=== PATIENT | female | born 1985 | race Caucasian/White ===

== ENCOUNTER → 2017-10-24 | Outpatient (CLI) | payer BC ==
[2017-10-24 18:22] LABS: BASO % 0.4 % (0.0-1.0); EOS # 0.1 10^3/uL (0.0-0.50); EOS % 0.8 % (0.0-3.0); HEMATOCRIT 34.7 % (36.0-47.0); HEMOGLOBIN 11.7 g/dl (12.0-15.5); IMMATURE GRANULOCYTE % 0.5 % (0-3.0); LYMPH # 2.3 10^3/uL (1.5-4.5); LYMPH % 27.3 % (24.0-44.0); MEAN CORPUSCULAR HEMOGLOBIN 29.8 pg (27.0-33.0); MEAN CORPUSCULAR HGB CONC 33.7 g/dl (32.0-36.5); MEAN CORPUSCULAR VOLUME 88.3 fl (80.0-96.0); MONO # 0.5 10^3/uL (0.0-0.8); MONO % 5.5 % (0.0-5.0); NEUTROPHILS # 5.6 10^3/uL (1.8-7.7); NEUTROPHILS % 65.5 % (36.0-66.0); PLATELET COUNT, AUTOMATED 209 10^3/uL (150-450); RED BLOOD COUNT 3.93 10^6/uL (4.00-5.40); RED CELL DISTRIBUTION WIDTH 13.4 % (11.5-14.5); WHITE BLOOD COUNT 8.6 10^3/uL (4.0-10.0)
[2017-10-25 10:39] LABS: RUBELLA IgG QUALITATIVE IMMUNE (IMMUNE)
[2017-10-25 11:02] LABS: HBsAg Prenatal NEGATIVE (NEGATIVE)
[2017-10-25 11:09] LABS: HIV 1&2 SCREEN CENTAUR NEGATIVE (NEGATIVE)
== END ==
LOC: M SMT 13:38
DX: Z34.81 Encounter for supervision of other normal pregnancy, first trimester (principal); Z3A.09 9 weeks gestation of pregnancy
CPT/HCPCS: 86762

== ENCOUNTER → 2017-10-25 | Outpatient (CLI) | payer BC | LOC: M RAD 16:13 | DX: Z36.9 Encounter for antenatal screening, unspecified (principal); Z3A.19 19 weeks gestation of pregnancy | CPT/HCPCS: 76811 ==

== ENCOUNTER → 2017-11-22 | Outpatient (CLI) | payer BC | LOC: M SMT 11:10 | DX: Z34.82 Encounter for supervision of other normal pregnancy, second trimester (principal); Z3A.23 23 weeks gestation of pregnancy | CPT/HCPCS: 76816 ==

== ENCOUNTER → 2017-12-16 | Outpatient (REF) | payer BC ==
[2017-12-16 21:44] LABS: CHLAMYDIA DNA AMPLIFICATION NEGATIVE (NEGATIVE); GC DNA AMPLIFICATION NEGATIVE (NEGATIVE)
== END ==
LOC: M LAB REF 17:08
DX: Z34.82 Encounter for supervision of other normal pregnancy, second trimester (principal)
CPT/HCPCS: 87186

== ENCOUNTER → 2018-01-27 | Outpatient (CLI) | payer BC ==
[2018-01-27 15:20] LABS: HEMATOCRIT 30.9 % (36.0-47.0); HEMOGLOBIN 10.6 g/dl (12.0-15.5); MEAN CORPUSCULAR HEMOGLOBIN 29.3 pg (27.0-33.0); MEAN CORPUSCULAR HGB CONC 34.3 g/dl (32.0-36.5); MEAN CORPUSCULAR VOLUME 85.4 fl (80.0-96.0); PLATELET COUNT, AUTOMATED 216 10^3/uL (150-450); RED BLOOD COUNT 3.62 10^6/uL (4.00-5.40); RED CELL DISTRIBUTION WIDTH 13.7 % (11.5-14.5)
[2018-01-27 15:43] LABS: GLUCOSE CHALLENGE TEST 1 HOUR 95 MG/DL (LESS THAN 140)
== END ==
LOC: M LAB 13:46
DX: Z34.83 Encounter for supervision of other normal pregnancy, third trimester (principal); Z3A.00 Weeks of gestation of pregnancy not specified
CPT/HCPCS: 82950

== ENCOUNTER → 2018-01-28 | Outpatient (REF) | payer BC | LOC: M LAB REF 16:43 | DX: Z34.83 Encounter for supervision of other normal pregnancy, third trimester (principal) | CPT/HCPCS: 87086 ==

== ENCOUNTER → 2018-02-14 | Outpatient (REF) | payer BC | LOC: M LAB REF 02-17 13:28 | DX: Z34.83 Encounter for supervision of other normal pregnancy, third trimester (principal); Z3A.00 Weeks of gestation of pregnancy not specified | CPT/HCPCS: 87088 ==

== ENCOUNTER → 2018-02-28 | Outpatient (REF) | payer BC | LOC: M LAB REF 17:03 | DX: Z34.83 Encounter for supervision of other normal pregnancy, third trimester (principal); Z3A.00 Weeks of gestation of pregnancy not specified ==

== ENCOUNTER 2018-03-09 22:36 | Inpatient (IN) | payer BC ==
[2018-03-09] MEDS: PENICILLIN G POTASSIUM IV 5 MU in D5W MINI-BAG PLUS 100 ML IV (23:11)
[2018-03-09] MEDS: LR 1,000 ML IV (23:11)
[2018-03-09] MEDS: LACTATED RINGER'S 1000 ML IV (23:11)
[2018-03-09 23:13] LABS: HEMATOCRIT 33.4 % (36.0-47.0); HEMOGLOBIN 11.3 g/dl (12.0-15.5); MEAN CORPUSCULAR HEMOGLOBIN 29.4 pg (27.0-33.0); MEAN CORPUSCULAR HGB CONC 33.8 g/dl (32.0-36.5); MEAN CORPUSCULAR VOLUME 86.8 fl (80.0-96.0); PLATELET COUNT, AUTOMATED 205 10^3/uL (150-450); RED BLOOD COUNT 3.85 10^6/uL (4.00-5.40); RED CELL DISTRIBUTION WIDTH 14.7 % (11.5-14.5); WHITE BLOOD COUNT 11.9 10^3/uL (4.0-10.0)
[2018-03-10] MEDS ORDERED: FENTANYL 2MCG/ML ROPIVACAINE 0.2% IN 0.9% NACL 200ML IVBAG As Ordered (00:03)
[2018-03-10] MEDS ORDERED: ONDANSETRON 4MG/2ML VIAL (J2405) IV ×2 (00:33→05:45)
[2018-03-10] MEDS ORDERED: ePHEDrine SULFATE 25 MG/5 ML(5MG/ML) SYRINGE IV (00:33)
[2018-03-10] MEDS ORDERED: diphenhydrAMINE INJ 50MG/ML VIAL (J1200) IV (00:33)
[2018-03-10] MEDS ORDERED: EPIDURAL/PCA KEYS XX (00:33)
[2018-03-10] MEDS ORDERED: REFRIGERATOR IV KEYS XX (00:33)
[2018-03-10] MEDS ORDERED: NALOXONE INJ 0.4 MG/1 ML VIAL (J2310) IV (00:33)
[2018-03-10] MEDS ORDERED: FENTANYL/ROPIVACAINE/NACL BAG 200 ML EPIDURAL (00:33)
[2018-03-10] MEDS ORDERED: LACTATED RINGER'S 1000 ML IV (00:33)
[2018-03-10] MEDS ORDERED: EPIDURAL COMMENT XX (00:33)
[2018-03-10] MEDS: OXYTOCIN DRIP 30 UNITS in APPROPRIATE DILUENT 1 EA IV ×2 (03:37→05:45)
[2018-03-10] MEDS: PENICILLIN G POTASSIUM IV 2.5 MU in APPROPRIATE DILUENT 1 EA IV (03:45)
[2018-03-10] MEDS ORDERED: DOCUSATE SODIUM 100 MG CAP PO (05:45)
[2018-03-10] MEDS ORDERED: RHOGAM 300 MCG (1500 IU) INJ (J2790) IM (05:45)
[2018-03-10] MEDS ORDERED: DIBUCAINE 1% OINTMENT 30GM TOP (05:45)
[2018-03-10] MEDS ORDERED: MEASLES,MUMPS,RUBELLA VACCINE INJ (MMR-II) (90707) SC (05:45)
[2018-03-10] MEDS ORDERED: METHYLERGONOVINE MALEATE 0.2 MG TAB PO (05:45)
[2018-03-10] MEDS: AMPHETAMINE/DEXTROAMPHETAMINE 5 MG *ER* CAPSULE (ADDERALL XR) PO ×2 (09:00→15:05)
[2018-03-10] MEDS ORDERED: ADDERALL 5 MG TAB PO (09:00)
[2018-03-10] MEDS: IBUPROFEN 800 MG TAB PO (09:47)
[2018-03-10] MEDS: PRENATAL VITAMINS CHEWABLE TABLET PO (09:47)
[2018-03-10] MEDS: ACETAMINOPHEN 500 MG TAB PO (11:57)
[2018-03-11] MEDS: IBUPROFEN 800 MG TAB PO (03:21)
[2018-03-11] MEDS: AMPHETAMINE/DEXTROAMPHETAMINE 5 MG *ER* CAPSULE (ADDERALL XR) PO (09:51)
[2018-03-11] MEDS: PRENATAL VITAMINS CHEWABLE TABLET PO (09:51)
== END 2018-03-11 13:20 | disposition home or self-care (01) | DRG 560 ==
LOC: M LDO 22:36 → M OBS 03-10 07:27 → M LDI 22:46
PROVIDERS: Specialist
PROC: 10E0XZZ Delivery of Products of Conception, External Approach (ICD-10-PCS; principal; 2018-03-10)
DX: O99.334 Smoking (tobacco) complicating childbirth (principal); F17.210 Nicotine dependence, cigarettes, uncomplicated; Z37.0 Single live birth; Z3A.38 38 weeks gestation of pregnancy; Z91.040 Latex allergy status; O99.820 Streptococcus B carrier state complicating pregnancy

== ENCOUNTER 2018-08-25 15:40 | Emergency (ER) | payer BC, OTHER ==
[~2018-08-25 15:40] MED LIST: ADDE30CA3 PO; COLA100C5 PO; FE T325T PO; IBUP-1114 PO; MAPA500T2 PO; MOTR200T44 PO; PRENTAB16 PO; TUMS500C PO; TYLE325T5 PO
[2018-08-25] MEDS ORDERED: KETOROLAC 30 MG/ML VIAL (J1885) As Ordered ONE (15:59)
[2018-08-25] MEDS ORDERED: KETOROLAC 30 MG/ML VIAL (J1885) IV ONE (16:00)
[2018-08-25] MEDS ORDERED: NS 1,000 ML IV ONE (16:15)
[2018-08-25 16:30] LABS: BASO % 0.5 % (0.0-1.0); EOS # 0.1 10^3/uL (0.0-0.50); EOS % 0.8 % (0.0-3.0); HEMATOCRIT 43.5 % (36.0-47.0); HEMOGLOBIN 14.7 g/dl (12.0-15.5); LYMPH # 2.8 10^3/uL (1.5-4.5); LYMPH % 32.7 % (24.0-44.0); MEAN CORPUSCULAR HGB CONC 33.8 g/dl (32.0-36.5); MEAN CORPUSCULAR VOLUME 85.8 fl (80.0-96.0); MONO # 0.5 10^3/uL (0.0-0.8); MONO % 5.8 % (0.0-5.0); NEUTROPHILS # 5.1 10^3/uL (1.8-7.7); PLATELET COUNT, AUTOMATED 299 10^3/uL (150-450); RED BLOOD COUNT 5.07 10^6/uL (4.00-5.40); WHITE BLOOD COUNT 8.6 10^3/uL (4.0-10.0)
[2018-08-25 16:57] LABS: ALBUMIN 4.1 GM/DL (3.2-5.2); ALT/SGPT 29 U/L (12-78); BILIRUBIN,DIRECT 0.1 MG/DL (0.0-0.2); BILIRUBIN,TOTAL 0.5 MG/DL (0.2-1.0); BLOOD UREA NITROGEN 7 MG/DL (7-18); CALCIUM LEVEL 9.6 MG/DL (8.5-10.1); CARBON DIOXIDE LEVEL 22 MEQ/L (21-32); CHLORIDE LEVEL 107 MEQ/L (98-107); CREATININE FOR GFR 1.02 MG/DL (0.55-1.30); GLOMERULAR FILTRATION RATE > 60.0 (>60); GLUCOSE, FASTING 109 MG/DL (70-100); POTASSIUM SERUM 3.8 MEQ/L (3.5-5.1); SODIUM LEVEL 141 MEQ/L (136-145); TOTAL PROTEIN 7.9 GM/DL (6.4-8.2)
--- NOTE | 2018-08-25 18:05 | REP ---
Clinical: Left flank pain. Technique: Axial noncontrast images from the lung bases to the pubic symphysis with coronal and sagittal re-formations. Findings: Mild acute left-sided obstructive uropathy with edematous enlargement to the left kidney, perinephric and periureteral stranding along with hydronephrosis secondary to a 2 mm calculus at the ureterovesical junction (image 129). No other urinary tract calcifications are identified bilaterally. The right kidney/ureter and bladder appear normal. Liver, spleen, pancreas, gallbladder, and bilateral adrenal glands are normal. The enteric system is without obstruction or acute inflammatory process. Normal terminal ileum and appendix are identified in the right lower quadrant. Pelvis demonstrates normal bladder and age-appropriate uterus/adnexa. No ascites. No free air. No adenopathy. Abdominal aorta without aneurysm. Musculoskeletal structures are intact. Lung bases are clear. Impression: Acute left-sided obstructive uropathy with a 2 mm obstructing calculus at the left ureterovesical junction. Electronically Signed by Emanuel Kenny MD 08/25/2018 05:56 P
[2018-08-25] MEDS ORDERED: PERCOCET 5MG/325MG TAB As Ordered ONE (18:14)
[2018-08-25] MEDS ORDERED: PERCOCET 5MG/325MG TAB PO ONE (18:15)
[2018-08-25] MEDS ORDERED: LORazepam 2 MG/ML VIAL (J2060) IV STA (18:20)
[2018-08-25] MEDS ORDERED: FLOM0.4C39 PO (18:28)
[2018-08-25] MEDS ORDERED: NORCOTAB PO (18:28)
[2018-08-25 18:36] VITALS: BP 154/101
== END 2018-08-25 18:42 | disposition home or self-care (01) ==
LOC: M ED 15:40
DX: N20.1 Calculus of ureter (principal); Z72.0 Tobacco use; Z79.899 Other long term (current) drug therapy; Z91.040 Latex allergy status
CPT/HCPCS: 74176; 80048; 80076; 81001; 81025; 85025; 96374; 96375; 99284; J1885; J2060

== ENCOUNTER → 2020-08-09 | Outpatient (CLI) | payer SELFPAY ==
[~2020-08-09] MED LIST changes: +FLOM0.4C39 PO; +HYDR-3715 PO
== END ==
LOC: M LABSMTC 11:44
PROVIDERS: ATTEND Pediatrics
DX: Z20.828 Contact with and (suspected) exposure to other viral communicable diseases (principal)

== ENCOUNTER 2020-08-31 16:59 | Emergency (ER) | payer OTHER, SELFPAY ==
[~2020-08-31] VITALS: Ht 167.6 cm; Wt 89.6 kg
--- OUTSIDE RECORDS SUMMARY | 2020-08-31 17:14 | CCD ---
Author Organization Unknown Address [address] [place] [address] Phone [phone] Care Team Providers Care Hostel Parent Name Role Phone [phone] Covid Nurse Unavailable Unavailable Allergies None recorded. Medications None recorded. Problems None recorded. Procedures None recorded. Results Lab Results Date Name Specimen Result Interpretation Description Value Range Status Address 08/10/2020 SARS CoV 2 RdRp Gene, QL Probe, Respirat ory Specimen Nose (nasal passage) Normal Sars-cov-2 negative negative Final [facility]: [address] [facility] Past Encounters 08/10/2020 Exposure to SARS-CoV-2 Gonzalo Grajeda MD: [address] [place] [id number], Ph. Social History None recorded. Vaccine List None recorded. Plan of Care Reminders Provider Appointments None recorded. Lab None recorded. Referral None recorded. Procedures None recorded. Surgeries None recorded. Imaging None recorded. Vitals None recorded.
--- OUTSIDE RECORDS SUMMARY | 2020-08-31 17:14 | CCD | Continuity of Care Document ---
Author Author [facility] Organization [facility] Address Unknown Phone Unavailable Care Team Providers Care Senior Art Director Name Role Phone Elissa Tobar MD Unavailable Unavailable Allergies, Adverse Reactions, Alerts Substance Reaction Status Criticality No Known Allergies Active No Information Medications Medication Instructions Dosage Effective Dates (start - stop) Sta tus Comments ADDERALL (unknown strength) take 1 tablet by oral rout e every day before breakfast Not Available - Active Problems Condition Effective Dates (start - stop) Clinical Status C omments Body mass index (BMI) 31.0-31.9, adult - Overweight - Human immunodeficiency virus [HIV] counseling Encounter for test, result negative Other sex counseling Encounter for oth general cnsl and advice on contraception 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 Encounter for oth screening for malignant neoplasm of breast HIV Counseling [employer] Exam, Routine WWE Family Planning Counseling Procedures Procedure Date No Information Results Test Name Date and Time Measure Units Reference Range Abnormal Flag St atus Comments No Information Advance Directives Directive Yes / No Effective Date File Name No Information Encounters Encounter Description Practice Location Reason(s) For Visit Diagnose s Date Provider Providers Copied on [facility]counter [facility] [place], [address] [place] [address], [id number], tel:[phone] SHERICE Méndez No Information Amadou Bowers. [address] [place] [address], [id number], . tel:[phone] [facility] [address] [place] [address], [id number], tel:[phone] [facility] Human immunodeficie ncy virus [HIV] counselingEncounter for test, result negativeOther sex counselingEncounter for oth general cnsl and advice on contraception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Encounter for oth screening for malignant neoplasm of breastBody mass index (BMI) 31.0-31.9, adult Kathy Guillory. [address] [place] [address], [id number], [place]. tel:[phone] Referring Provider: Pastora Chavez, [address] [place], [place], [id number]. tel:[phone] [facility] [address], [id number], tel:[phone] [facility] HIV CounselingGYN E xam, Routine WWEFamily Planning CounselingOverweight Ramiro Peggy. [address] [place], [place], [id number], [place]. tel:[phone] Family History Family Member Diagnosis Age At Onset Maternal grandmother Myocardial Infarction Maternal grandmother Diabetes mellitus 1st degree relative No hx of cancer of breast, colon, endome trium or ovary 1st degree relative No hx of coronary heart disease (female <65, male <55) 1st degree relative No hx of venous thromboembolism Immunizations Vaccine Date Status Comments varicella virus vaccine administered Note: da te unknown ; Source: Source Unspecified tetanus toxoid, adsorbed administered Note: d ate unknown ; Source: Source Unspecified measles, mumps and rubella virus vaccine adminis tered Note: date unknown ; Source: Source Unspecified hepatitis B vaccine, adult dosage administered Note: date unknown ; Source: Source Unspecified hepatitis A vaccine, adult dosage administered Note: date unknown ; Source: Source Unspecified Payers Payer name Insurance type Covered libertarian ID Authorization(s ) [facility] [id number] Social History Type Description Quantity Date Captured Comments Alcohol Use Details Unknown Caffeine Use Details Unknown Tobacco Use Status Smoking Status Heavy tobacco smoker Sex Female Vital Signs Date / Time: Height Weight BMI Pulse Rate Blood Pressure Temperatu re Respiratory Rate Body Surface Area Head Circumference BMI percentile Pulse Ox In haled Ox No Information Chief Complaint And Reason For Visit No Information Reason For Referral Reason For Referral No Information Plan Of Treatment Date Type Action Status Goal Dietary management education, gu idance, and counseling completed Goal Tobacco cessation counseling com pleted Goal Dietary management education, gu idance, and counseling completed History Of Present Illness Encounter Date Complaint History Of Present I llness No Information Functional Status Date Functional Assessment No Information Medications Administered Medication Instructions Dosage Effective Dates (start - stop) Sta tus Comments No Information Instructions Date Instruction Additional Informati on Dietary management education, guidance, and counseling Related to Body mass index (BMI) 31.0-31.9, adult Dietary management education, guidance, and counseling Related to Overweight Assessments Type Assessment Date No Information Goals Health Concern Goal Type Priority Status Date No Information Medical Equipment Description Device Harris Device Identifier Effective Win es (start - stop) Status No Information Mental Status Date Cognitive Assessment No Information Health Concerns Observation Date No Information Concern Status Date No Information Physical Examination Exam Findings Details No Information
--- OUTSIDE RECORDS SUMMARY | 2020-08-31 17:15 | CCD ---
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 Name Role Phone Reyna Tobar MD Unavailable Unavailable Amadou, Reyna Bowers MD Unavailable Unavailable Amadou, Reyna Bowers MD Unavailable Unavailable Amadou, Reyna Bowers MD Unavailable Unavailable Amadou, Reyna Bowres MD Unavailable Unavailable Amadou, Reyna Bowers MD Unavailable Unavailable Amadou, Reyna Bowers MD Unavailable Unavailable Amadou, Reyna Bowers MD Unavailable Unavailable Amadou, Reyna Bowers MD Unavailable Unavailable Amadou, Reyna Bowers MD Unavailable Unavailable Amadou, Reyna Bowers MD Unavailable Unavailable Amadou, Reyna Bowers MD Unavailable Unavailable Amadou, Reyna Bowers MD Unavailable Unavailable Amadou, Reyna Bowers MD Unavailable Unavailable Amadou, Reyna Bowers MD Unavailable Unavailable Amadou, Reyna Bowers MD Unavailable Unavailable Amadou, Reyna Bowers MD Unavailable Unavailable Amadou, Reyna Bowers MD Unavailable Unavailable Amadou, Reyna Bowers MD Unavailable Unavailable Amadou, Reyna Bowers MD Unavailable Unavailable Amadou, Reyna Bowers MD Unavailable Unavailable Amadou, Reyna Bowers MD Unavailable Unavailable Amadou, Reyna Bowers MD Unavailable Unavailable Amadou, Reyna Bowers MD Unavailable Unavailable Amadou, Reyna Bowers MD Unavailable Unavailable Amadou, Reyna Bowers MD Unavailable Unavailable Amadou, Reyna Bowers MD Unavailable Unavailable Amadou, Reyna Bowers MD Unavailable Unavailable Amadou, Reyna Bowers MD Unavailable Unavailable Amadou, Reyna Bowers MD Unavailable Unavailable Amadou, Reyna Bowers MD Unavailable Unavailable Amadou, Reyna Bowers MD Unavailable Unavailable Amadou, Reyna Bowers MD Unavailable Unavailable Amadou, Reyna Bowers MD Unavailable Unavailable Amadou, Reyna Bowers MD Unavailable Unavailable Amadou, Reyna Bowers MD Unavailable Unavailable Amadou, Reyna Bowers MD Unavailable Unavailable Amadou, Reyna Bowers MD Unavailable Unavailable Amadou, Reyna Bowers MD Unavailable Unavailable Amadou, Reyna Bowers MD Unavailable Unavailable Amaduo, Reyna Bowers MD Unavailable Unavailable Amadou, Reyna Bowers MD Unavailable Unavailable Amadou, Reyna Bowers MD Unavailable Unavailable Amadou, Reyna Bowers MD Unavailable Unavailable Amadou, Reyna Bowers MD Unavailable Unavailable Amadou, Reyna Bowers MD Unavailable Unavailable Amadou, Reyna Bowers MD Unavailable Unavailable Amadou, Reyna Bowers MD Unavailable Unavailable Amadou, Reyna Bowers MD Unavailable Unavailable Amadou, Reyna Bowers MD Unavailable Unavailable Amadou, Reyna Bowers MD Unavailable Unavailable Amadou, Reyna Bowers MD Unavailable Unavailable Amadou, Reyna Bowers MD Unavailable Unavailable Amadou, Reyna Bowers MD Unavailable Unavailable Amadou, Reyna Bowers MD Unavailable Unavailable Amadou, Reyna Bowers MD Unavailable Unavailable Amadou, Reyna Bowers MD Unavailable Unavailable Amadou, Reyna Bowers MD Unavailable Unavailable Amadou, Reyna Bowers MD Unavailable Unavailable Amadou, Reyna Bowers MD Unavailable Unavailable Amadou, Reyna Bowers MD Unavailable Unavailable Amadou, Reyna Bowers MD Unavailable Unavailable Amadou, Reyna Boewrs MD Unavailable Unavailable Amadou, Reyna Bowers MD Unavailable Unavailable Amadou, Reyna Bowers MD Unavailable Unavailable Amadou, Reyna Bowers MD Unavailable Unavailable Amadou, Reyna Bowers MD Unavailable Unavailable Amadou, Reyna Bowers MD Unavailable Unavailable Amadou, Reyna Bowers MD Unavailable Unavailable Amadou, Reyna Bowers MD Unavailable Unavailable Amadou, Reyna Bowers MD Unavailable Unavailable Amadou, Reyna Bowers MD Unavailable Unavailable Amadou, Reyna Bowers MD Unavailable Unavailable Amadou, Reyna Bowers MD Unavailable Unavailable Amadou, Reyna Bowers MD Unavailable Unavailable Werner Grajeda MD Unavailable Unavailable Werner Grajeda MD Unavailable Unavailable Werner Grajeda MD Unavailable Unavailable Werner Grajeda MD Unavailable Unavailable Werner Grajeda MD Unavailable Unavailable Werner Grajeda MD Unavailable Unavailable Werner Grajeda MD Unavailable Unavailable Werner Grajeda MD Unavailable Unavailable Werner Grajeda MD Unavailable Unavailable Werner Grajeda MD Unavailable Unavailable Werner Grajeda MD Unavailable Unavailable Werner Grajeda MD Unavailable Unavailable Werner Grajeda MD Unavailable Unavailable Werner Grajeda MD Unavailable Unavailable Werner Grajeda MD Unavailable Unavailable Werner Grajeda MD Unavailable Unavailable Werner Grajeda MD Unavailable Unavailable Werner Grajeda MD Unavailable Unavailable Werner Grajeda MD Unavailable Unavailable Werner Grajeda MD Unavailable Unavailable Werner Grajeda MD Unavailable Unavailable Werner Grajeda MD Unavailable Unavailable Werner Grajeda MD Unavailable Unavailable Werner Grajeda MD Unavailable Unavailable Werner Grajeda MD Unavailable Unavailable Werner Grajeda MD Unavailable Unavailable Werner Grajeda MD Unavailable Unavailable Werner Grajeda MD Unavailable Unavailable Werner Grajeda MD Unavailable Unavailable Werner Grajeda MD Unavailable Unavailable Werner Grajeda MD Unavailable Unavailable Werner Grajeda MD Unavailable Unavailable Werner Grajeda MD Unavailable Unavailable Werner Grajeda MD Unavailable Unavailable Werner Grajeda MD Unavailable Unavailable Werner Grajeda MD Unavailable Unavailable Werner Grajeda MD Unavailable Unavailable Werner Grajeda MD Unavailable Unavailable Werner Grajeda MD Unavailable Unavailable Werner Grajeda MD Unavailable Unavailable Werner Grajeda MD Unavailable Unavailable Werner Grajeda MD Unavailable Unavailable Werner Grajeda MD Unavailable Unavailable Werner Grajeda MD Unavailable Unavailable Werner Grajeda MD Unavailable Unavailable Werner Grajeda MD Unavailable Unavailable Werner Grajeda MD Unavailable Unavailable Werner Grajeda MD Unavailable Unavailable Werner Grajeda MD Unavailable Unavailable Werner Grajeda MD Unavailable Unavailable Werner Grajeda MD Unavailable Unavailable Werner Grajeda MD Unavailable Unavailable Werner Grajeda MD Unavailable Unavailable Werner Grajeda MD Unavailable Unavailable Werner Grajeda MD Unavailable Unavailable Werner Grajeda MD Unavailable Unavailable Werner Grajeda MD Unavailable Unavailable Werner Grajeda MD Unavailable Unavailable Werner Grajeda MD Unavailable Unavailable Werner Grajeda MD Unavailable Unavailable Werner Grajeda MD Unavailable Unavailable Werner Grajeda MD Unavailable Unavailable Werner Grajeda MD Unavailable Unavailable Werner Grajeda MD Unavailable Unavailable Werner Grajeda MD Unavailable Unavailable Werner Grajeda MD Unavailable Unavailable Werner Grajeda MD Unavailable Unavailable Werner Grajeda MD Unavailable Unavailable Werner Grajeda MD Unavailable Unavailable Werner Grajeda MD Unavailable Unavailable Werner Grajeda MD Unavailable Unavailable Werner Grajeda MD Unavailable Unavailable Werner Grajeda MD Unavailable Unavailable Werner Grajeda MD Unavailable Unavailable Werner Grajeda MD Unavailable Unavailable Werner Grajeda MD Unavailable Unavailable Werner Grajeda MD Unavailable Unavailable Werner Grajeda MD Unavailable Unavailable Werner Grajeda MD Unavailable Unavailable Werner Grajeda MD Unavailable Unavailable Werner Grajeda MD Unavailable Unavailable Werner Grajeda MD Unavailable Unavailable Werner Grajeda MD Unavailable Unavailable Werner Grajeda MD Unavailable Unavailable Werner Grajeda MD Unavailable Unavailable Werner Grajeda MD Unavailable Unavailable Werner Grajeda MD Unavailable Unavailable Werner Grajeda MD Unavailable Unavailable Werner Grajeda MD Unavailable Unavailable Sherrill, Cathie PROPERTY CLAIM REP Unavailable Unavailable Sherrill, Cathie PROPERTY CLAIM REP Unavailable Unavailable Sherrill, Cathie PROPERTY CLAIM REP Unavailable Unavailable Sherrill, Cathie PROPERTY CLAIM REP Unavailable Unavailable Sherrill, Cathie PROPERTY CLAIM REP Unavailable Unavailable Sherrill, Cathie PROPERTY CLAIM REP Unavailable Unavailable Sherrill, Cathie PROPERTY CLAIM REP Unavailable Unavailable Sherrill, Cathie PROPERTY CLAIM REP Unavailable Unavailable Sherrill, Cathie PROPERTY CLAIM REP Unavailable Unavailable Sherrill, Cathie PROPERTY CLAIM REP Unavailable Unavailable Sherrill, Cathie PROPERTY CLAIM REP Unavailable Unavailable Sherrill, Cathie PROPERTY CLAIM REP Unavailable Unavailable Sherrill, Cathie PROPERTY CLAIM REP Unavailable Unavailable Sherrill, Cathie PROPERTY CLAIM REP Unavailable Unavailable Sherrill, Cathie PROPERTY CLAIM REP Unavailable Unavailable Sherrill, Cathie PROPERTY CLAIM REP Unavailable Unavailable Sherrill, Cathie PROPERTY CLAIM REP Unavailable Unavailable Sherrill, Cathie PROPERTY CLAIM REP Unavailable Unavailable Sherrill, Cathie PROPERTY CLAIM REP Unavailable Unavailable Sherrill, Cathie PROPERTY CLAIM REP Unavailable Unavailable Sherrill, Cathie PROPERTY CLAIM REP Unavailable Unavailable Sherrill, Cathie PROPERTY CLAIM REP Unavailable Unavailable Sherrill, Cathie PROPERTY CLAIM REP Unavailable Unavailable Sherrill, Cathie PROPERTY CLAIM REP Unavailable Unavailable Sherrill, Cathie PROPERTY CLAIM REP Unavailable Unavailable Sherrill, Cathie PROPERTY CLAIM REP Unavailable Unavailable Sherrill, Cathie PROPERTY CLAIM REP Unavailable Unavailable Hemant Chavez PA Unavailable Unavailable Hemant Chavezey PA Unavailable Unavailable Hemant Chavezey PA Unavailable Unavailable Hemant Chavez Pastora PA Unavailable Unavailable [place], J Pastora PA Unavailable Unavailable Hemant Chavez Pastora PA Unavailable Unavailable [place], J Pastora PA Unavailable Unavailable Hemant Chavez Pastora PA Unavailable Unavailable Hemant Chavez Pastora PA Unavailable Unavailable Hemant Chavez Pastora PA Unavailable Unavailable Hemant Chavez Pastora PA Unavailable Unavailable Hemant Chavez Pastora PA Unavailable Unavailable Hemant Chavez Pastora PA Unavailable Unavailable Hemant Chavez Pastora PA Unavailable Unavailable Hemant Chavez Pastora PA Unavailable Unavailable Hemant Chavezey PA Unavailable Unavailable Hemant Chavez Pastora PA Unavailable Unavailable [place], J Pastora PA Unavailable Unavailable [place], J Pastora PA Unavailable Unavailable [place], J Pastora PA Unavailable Unavailable [place], J Pastora PA Unavailable Unavailable [place], J Pastora PA Unavailable Unavailable FELECIA, J Joselyn ANP Unavailable Unavailable FELECIA, J Joselyn ANP Unavailable Unavailable FELECIA, J Joselyn ANP Unavailable Unavailable FELECIA, J Joselyn ANP Unavailable Unavailable FELECIA, J Joselyn ANP Unavailable Unavailable FELECIA, J Joselyn ANP Unavailable Unavailable FELECIA, J Joselyn ANP Unavailable Unavailable FELECIA, J Joselyn ANP Unavailable Unavailable FELECIA, J Joselyn ANP Unavailable Unavailable FELECIA, J Joselyn ANP Unavailable Unavailable FELECIA, J Joselyn ANP Unavailable Unavailable FELECIA, J Joselyn ANP Unavailable Unavailable FELECIA, J Joselyn ANP Unavailable Unavailable FELECIA, J Joselyn ANP Unavailable Unavailable FELECIA, J Joselyn ANP Unavailable Unavailable FELECIA, J Joselyn ANP Unavailable Unavailable FELECIA, J Joselyn ANP Unavailable Unavailable FELECIA, J Joselyn ANP Unavailable Unavailable FELECIA, J Joselyn ANP Unavailable Unavailable FELECIA, J Joselyn ANP Unavailable Unavailable FELECIA, J Joselyn ANP Unavailable Unavailable FELECIA, J Joselyn ANP Unavailable Unavailable FELECIA, J Joselyn ANP Unavailable Unavailable FELECIA, J Joselyn ANP Unavailable Unavailable FELECIA, J Joselyn ANP Unavailable Unavailable FELECIA, J Joselyn ANP Unavailable Unavailable FELECIA, J Joselyn ANP Unavailable Unavailable FELECIA, J Joselyn ANP Unavailable Unavailable FELECIA, J Joselyn ANP Unavailable Unavailable FELECIA, J Joselyn ANP Unavailable Unavailable FELECIA, J Joselyn ANP Unavailable Unavailable FELECIA, J Joselyn ANP Unavailable Unavailable FELECIA, J Joselyn ANP Unavailable Unavailable FELECIA, J Joselyn ANP Unavailable Unavailable FELECIA, J Joselyn ANP Unavailable Unavailable FELECIA, J Joselyn ANP Unavailable Unavailable FELECIA, J Joselyn ANP Unavailable Unavailable FELECIA, J Joselyn ANP Unavailable Unavailable FELECIA, J Joselyn ANP Unavailable Unavailable FELECIA, J Joselyn ANP Unavailable Unavailable FELECIA, J Joselyn ANP Unavailable Unavailable FELECAI, J Joselyn ANP Unavailable Unavailable FELECIA, J Joselyn ANP Unavailable Unavailable FELECIA, J Joselyn ANP Unavailable Unavailable FELECIA, J Joselyn ANP Unavailable Unavailable FELECIA, J Joselyn ANP Unavailable Unavailable FELECIA, J Joselyn ANP Unavailable Unavailable FELECIA, J Joselyn ANP Unavailable Unavailable FELECIA, J Joselyn ANP Unavailable Unavailable FELECIA, J Joselyn ANP Unavailable Unavailable FELECIA, J Joselyn ANP Unavailable Unavailable FELECIA, J Joselyn ANP Unavailable Unavailable FELECIA, J Joselyn ANP Unavailable Unavailable FELECIA, J Joselyn ANP Unavailable Unavailable FELECIA, J Joselyn ANP Unavailable Unavailable FELECIA, J Joselyn ANP Unavailable Unavailable FELECIA, J Joselyn ANP Unavailable Unavailable FELECIA, J Joselyn ANP Unavailable Unavailable FELECIA, J Joselyn ANP Unavailable Unavailable FELECIA, J Joselyn ANP Unavailable Unavailable FELECIA, J Joselyn ANP Unavailable Unavailable FELECIA, J Joselyn ANP Unavailable Unavailable FELECIA, J Joselyn ANP Unavailable Unavailable FELECIA, J Joselyn ANP Unavailable Unavailable FELECIA, J Joselyn ANP Unavailable Unavailable FELECIA, J Joselyn ANP Unavailable Unavailable Re-disclosure Warning The records that you are about to access may contain information from federally-assisted alcohol or drug abuse programs. If such information is present, then the following federally mandated warning applies: This information has been disclosed to you from records protected by federal confidentiality rules (42 CFR part 2). The federal rules prohibit you from making any further disclosure of this information unless further disclosure is expressly permitted by the written consent of the person to whom it pertains or as otherwise permitted by 42 CFR part 2. A general authorization for the release of medical or other information is NOT sufficient for this purpose. The Federal rules restrict any use of the information to criminally investigate or prosecute any alcohol or drug abuse patient.The records that you are about to access may contain highly sensitive health information, the redisclosure of which is protected by Article 27-F of the [facility] Public Health law. If you continue you may have access to information: Regarding HIV / AIDS; Provided by facilities licensed or operated by the [facility] Office of Mental Health; or Provided by the [facility] Office for People With Developmental Disabilities. If such information is present, then the following [facility] mandated warning applies: This information has been disclosed to you from confidential records which are protected by state law. State law prohibits you from making any further disclosure of this information without the specific written consent of the person to whom it pertains, or as otherwise permitted by law. Any unauthorized further disclosure in violation of state law may result in a fine or half-way sentence or both. A general authorization for the release of medical or other information is NOT sufficient authorization for further disc losure. Allergies and Adverse Reactions Type Description Substance Reaction Status Data Source(s ) Allergy to substance Allergy to substance Allergy to substance [facility] ([facility]) Family History Family Member Name Family Member Gender Family Member Status Date o f Status Description Data Source(s) Unknown Female Diagnosis 08/13/2019 12:00:00 AM EST [facility] ([facility]) Unknown Female Diagnosis 08/18/2014 12:00:00 AM EST [facility] ([facility]) Encounters Encounter Providers Location Date Indications Data Source(s ) Attender: Elissa [place] 0 08/25/2020 10:09:00 AM EST - 08/25/2020 10:09:00 AM EST [facility] ([facility]) Gonzalo Grajeda MD: [address] [place] [address], Ph. Attender: Gonzalo Grajeda MD [place] [facility] Medical 08/10/2020 12:00:00 AM EST [facility]) Outpatient Attender: Cathie MARTINP Augusto Loya 10:40:00 AM EDT [facility] ([facility] ) Outpatient Attender: Joselyn Loya 08:00:00 AM EST [facility] ([facility] ) Attender: Pastora MAGALLON PPNCEJREMÍAS [facility] 07/29 03:15:00 PM EST - 08/13/2019 03:15:00 PM EST Body mass index (BMI) 31.0-31.9, adultEn counter for oth screening for malignant neoplasm of breastEncntr for life coach exam (general) (routine) w/o abn findingsEncounter for oth general cnsl and advice on contraceptionOther sex counselingEncounter for test, result negativeHuman immunodeficiency virus [HIV] counseling [facility] ([facility]) Body mass index (BMI) 31.0-31.9, adult Encounter for oth screening for malignan t neoplasm of breast Encntr for life coach exam (general) (routine) w/o abn findings Encounter for oth general cnsl and advic e on contraception Other sex counseling Encounter for test, result neg ative Human immunodeficiency virus [HIV] couns eling Medications Medication Brand Name Start Date Product Form Dose Route Admi nistrative Instructions Pharmacy Instructions Status Indications Reaction Description Data Source(s) 500 mg 06/29/2020 12:00:00 AM EST tablet 15 TAKE ONE TABLET THREE TIMES A DAY TAKE ONE TABLET THREE TIMES A DAY SOLD: 06/29/2020 [facility] 5-325 mg 06/29/2020 12:00:00 AM EST tablet 12 TAKE ONE TABLET EVERY 4 TO 6 HOURS NEEDED FOR PAIN MAXIMUM DAILY DOSE = 4 TABLETS TAKE ONE TABLET EVERY 4 TO 6 HOURS NEEDED FOR PAIN MAXIMUM DAILY DOSE = 4 TABLETS SOLD: 06/29/2020 [facility] 0.12 % 06/29/2020 12:00:00 AM EST mouthwash 473 SWISH AND EXPECTORATE WITH 5-10ML THREE TIMES A DAY STARTING TOMORROW SWISH AND EXPECTORATE WITH 5-10ML THREE TIMES A DAY STARTING TOMORROW SOLD: 06/29/2020 [facility] 5 mg/gram (0.5 %) 06/10/2020 12:00:00 AM EST ointment 3 APPLY A 1/2 INCH STRIP TO AFFECTED EYE(S) THREE TIMES A DAY FOR 7 DAYS APPLY A 1/2 INCH STRIP TO AFFECTED EYE(S) THREE TIMES A DAY FOR 7 DAYS SOLD: 06/10/2020 [facility] 5-325 mg 10/01/2019 12:00:00 AM EST tablet 20 TAKE 1 TABLET BY MOUTH EVERY 4 TO 6 HOURS NEEDED FOR PAIN, MAX DAILY DOSAGE OF FIVE TABLETS TAKE 1 TABLET BY MOUTH EVERY 4 TO 6 HOURS NEEDED FOR PAIN, MAX DAILY DOSAGE OF FIVE TABLETS SOLD: 10/01/2019 [facility] 500 mg 10/01/2019 12:00:00 AM EST capsule 15 TAKE ONE CAPSULE BY MOUTH THREE TIMES A DAY TAKE ONE CAPSULE BY MOUTH THREE TIMES A DAY SOLD: 10/01/2019 [facility] 0.12 % 10/01/2019 12:00:00 AM EST mouthwash 473 STARTING TOMORROW, SWISH WITH 5-10 ML THREE TIMES A DAY AND EXPECTORATE STARTING TOMORROW, SWISH WITH 5- 10 ML THREE TIMES A DAY AND EXPECTORATE SOLD: 10/01/2019 [facility] Amphetamine aspartate 7.5 MG / Amphetami ne Sulfate 7.5 MG / Dextroamphetamine saccharate 7.5 MG / Dextroamphetamine Sulfate 7.5 MG Oral Tablet [Adderall] Adderall 08/20/2019 12:00:00 AM EST active [facility] ([facility]) Triamcinolone Acetonide 1 MG/ML Topical Cream Triamcinolone Acetonide 08/20/2019 12:00:00 AM EST completed [facility] ([facility]) No Active Medications 08/20/2019 12:00:00 AM EST completed [facility] ([facility]) Adderal 08/20/2019 12:00:00 AM EST completed [facility] ([facility]) Insurance Providers Payer name Policy type / Coverage type Policy ID Covered green party ID Covered green party's relationship to monsalve Policy Monsalve Plan Information SELF PAY ONLY [facility] [id number] HU2 [id number] [place] 306/806 [id number] SP [id number] UMR O [id number] S [id number] [employer]LL[employer] BCBS B [id number] S VYS [id number] PMA MANAGEMENT [facility] [place] [id number] SP [id number] [place] P[place] 302/307 [id number] SELF PAY O [id number] S [id number] [place] PPO 302/307 [id number] HU2 [id number] [employer] BCBS B [id number] P VYS [id number] [employer] [id number] SP [id number] SELF PAY UNAVAILABLE UNAVAILA BLE Results ID Date Data Source [id number] 08/10/2020 08:43:00 AM EST [facility] ([facility]) Name Value Range Interpretation Code Description Data Debbi rce(s) Supporting Document(s) sars-cov-2 negative negative normal Sars-cov-2 [facility] ([facility]) ID Date Data Source [id number] 08/10/2020 07:42:00 AM EST [facility] Name Value Range Interpretation Code Description Data Debbi rce(s) Supporting Document(s) SARS coronavirus 2 RdRp gene [Presence] in Respiratory specimen by SHANELLE with probe detection Not detected [facility] This lab was ordered by [facility] and reported by [facility]. ID Date Data Source [id number] 08/09/2020 10:00:00 AM EST [facility] Name Value Range Interpretation Code Description Data Debbi rce(s) Supporting Document(s) SARS coronavirus 2 RNA Not Detected [facility] This lab was ordered by [facility] and reported by [facility]. ID Date Data Source [id number] 08/20/2019 09:00:00 AM EST [facility] ([facility]) Name Value Range Interpretation Code Description Data Debbi rce(s) Supporting Document(s) Triglyceride [Mass/volume] in Serum or Plasma 109 mg/dL 30-150 [facility] ([facility]) Cholesterol [Mass/volume] in Serum or Plasma 188 mg/dL 131-200 [facility] ([facility]) Cholesterol in HDL [Mass/volume] in Serum or Plasma 41 mg/dL 35-60 [facility] ([facility]) Cholesterol in LDL [Mass/volume] in Serum or Plasma by calcu lation 125 CALC 50-159 [facility] ([facility]) ID Date Data Source [id number] 08/20/2019 09:00:00 AM EST [facility] ([facility]) Name Value Range Interpretation Code Description Data Debbi rce(s) Supporting Document(s) Glucose [Mass/volume] in Serum or Plasma 92 mg/dL 74-99 [facility] ([facility]) 100-125 mg/dL PRE-DIABETES/FASTING >126 mg/dL DIABETES/FASTING Urea nitrogen [Mass/volume] in Serum or Plasma 8 mg/dL 7-18 [facility] ([facility]) Creatinine 0.8 mg/dL 0.6-1.3 [facility] Sodium [Moles/volume] in Serum or Plasma 139 meq/L 136-145 [facility] ([facility]) Potassium [Moles/volume] in Serum or Plasma 3.6 meq/L 3.5-5.1 [facility] ([facility]) Chloride [Moles/volume] in Serum or Plasma 104 meq/L 98-107 [facility] ([facility]) Alkaline phosphatase isoenzyme [Units/volume] in Serum or Pl asma 64 mg/dL 46-116 [facility] ([facility]) Calcium [Mass/volume] in Serum or Plasma 8.8 mg/dL 8.5-10.1 [facility] ([facility]) Carbon dioxide, total [Moles/volume] in Serum or Plasma 29 meq/L 21 -32 [facility] ([facility]) Aspartate aminotransferase [Enzymatic activity/volume] in Serum or Plasma 10 U/L 15-37 [facility] ([facility] ) Total Bilirubin 1.1 mg/dL 0.2-1.0 [facility] ([facility]) Alanine aminotransferase [Enzymatic activity/volume] in Seru m or Plasma 17 U/L 12-78 [facility] ([facility]) Albumin [Mass/volume] in Serum or Plasma 4.1 g/dL 3.4-5.0 [facility] Proteinase 3 Ab [Units/volume] in Serum 7.4 g/dL 6.4-8.2 [facility] ([facility]) Glomerular filtration rate/1.73 sq M pre dicted among blacks [Volume Rate/Area] in Serum or Plasma by Creatinine-based formula (MDRD) Laboratory [facility] <content>CHRONIC KIDNEY DISEASE STAGING PER NKF</content>
<content></content>
<content>STAGE I & II GFR >= 60 NORMAL TO MILDLY DECREASED</content>
<content>STAGE III GFR 30-59 MODERATELY DECREASED</content>
<content>STAGE IV GFR 15-29 SEVERELY DECREASED</content>
<content>STAGE V GFR <15 VERY LITTLE GFR LEFT</content>
<content>ESRD GFR <15 ON ALCOHOLISM WORKER</content>
<content></content> Glomerular filtration rate/1.73 sq M pre dicted among non-blacks [Volume Rate/Area] in Serum or Plasma by Creatinine-based formula (MDRD) Laboratory test result [facility] ([facility] ) A/G Ratio 1.24 CALC 1.00-1.90 [facility] ID Date Data Source [id number] 08/20/2019 09:00:00 AM EST [facility]) Name Value Range Interpretation Code Description Data Debbi rce(s) Supporting Document(s) Erythrocytes [#/volume] in Blood by Automated count 4.88 x10*6/UL 4.2 0-6.30 [facility] ([facility]) Hemoglobin [Mass/volume] in Blood 14.3 g/dL 12.0-18.0 [facility] ([facility]) Leukocytes [#/volume] in Blood by Automated count 6.9 x10*3/UL 4.1-10 .9 [facility] ([facility]) Hematocrit [Volume Fraction] of Blood by Automated count 41.3 % 3 7.0-51.0 [facility] ([facility]) MCV 84.6 fL 80.0-97.0 [facility] ([facility]) Erythrocyte distribution width [Ratio] by Automated count 12.4 % 11.6-13.7 [facility] ([facility]) MCH 29.3 pg 26.0-32.0 [facility] ([facility]) MCHC 34.6 g/dL 31.0-38.0 [facility] ([facility]) Platelets [#/volume] in Blood by Automated count 228 x10*3/UL 140-440 [facility] ([facility]) MPV 8.9 FL 7.8-11.0 [facility] ([facility]) Lymph % 25.9 % 10.0-58.5 [facility] ([facility]) Lymph # 1.8 x10*3/UL 0.6-4.1 [facility] ([facility]) Mid % 7.4 % 1.7-9.3 [facility] ([facility]) Mid # 0.5 x10*3/UL 0.1-0.6 [facility] ([facility]) Neut % 66.7 % 37.0-92.0 [facility] ([facility]) Neut # 4.6 x10*3/UL 2.0-7.8 [facility] ([facility]) Procedure Social History Code Duration Value Status Description Data Source(s ) Smoking 08/25/2020 12:00:00 AM EST Heavy tobacco smoker comple juan Heavy tobacco smoker [facility] ([facility]) Vital Signs ID Date Data Source UNK Name Value Range Interpretation Code Description Data Source(s) Body mass index (BMI) [Ratio] 31.0 kg/m2 31.0 k g/m2 [facility] ([facility]) Oxygen saturation in Arterial blood by Pulse oximetry 99 % 99 % [facility] ([facility]) RM Air Body weight 192.00 [lb_av] 192.00 [lb_av] [facility] T ([facility]) Body height 66 [in_i] 66 [in_i] [place] ([facility]) 5'6" Diastolic blood pressure 68 mm[Hg] 68 mm[Hg] [facility] Systolic blood pressure 138 mm[Hg] 138 mm[Hg] [facility] ([facility]) Body mass index (BMI) [Ratio] 31.3 kg/m2 31.3 k g/m2 [facility] ([facility]) Oxygen saturation in Arterial blood by Pulse oximetry 99 % 99 % [facility] ([facility]) Body weight 194.00 [lb_av] 194.00 [lb_av] ABBIE [facility]roeder ([facility]) Body height 66 [in_i] 66 [in_i] [facility] ([facility]) 5'6" Heart rate 104 /min 104 /min [facility] ([facility]) Diastolic blood pressure 88 mm[Hg] 88 mm[Hg] [place] ([facility]) Systolic blood pressure 140 mm[Hg] 140 mm[Hg] [facility] ([facility])
--- OUTSIDE RECORDS SUMMARY | 2020-08-31 18:01 | CCD ---
Author Author [facility] Organization [facility] Address Unknown Phone Unavailable Care Team Providers Care Art Psychotherapist Name Role Phone Reyna Tobar MD Unavailable [...] Unavailable Werner Grajeda MD Unavailable Unavailable Werner Grajead MD Unavailable Unavailable Werner Grajeda MD Unavailable [...] Werner Grajeda MD Unavailable Unavailable Sherrill, Cathie ASSOCIATE PROFESSOR OF HISTORY Unavailable Unavailable Sherrill, Cathie ASSOCIATE PROFESSOR OF HISTORY Unavailable Unavailable Sherrill, Cathie ASSOCIATE PROFESSOR OF HISTORY Unavailable Unavailable Sherrill, Cathie ASSOCIATE PROFESSOR OF HISTORY Unavailable Unavailable Sherrill, Cathie ASSOCIATE PROFESSOR OF HISTORY Unavailable Unavailable Sherrill, Cathie ASSOCIATE PROFESSOR OF HISTORY Unavailable Unavailable Sherrill, Cathie ASSOCIATE PROFESSOR OF HISTORY Unavailable Unavailable Sherrill, Cahtie ASSOCIATE PROFESSOR OF HISTORY Unavailable Unavailable Sherrill, Cathie ASSOCIATE PROFESSOR OF HISTORY Unavailable Unavailable Sherrill, Cathie ASSOCIATE PROFESSOR OF HISTORY Unavailable Unavailable Sherrill, Cathie ASSOCIATE PROFESSOR OF HISTORY Unavailable Unavailable Sherrill, Cathie ASSOCIATE PROFESSOR OF HISTORY Unavailable Unavailable Sherrill, Acthie ASSOCIATE PROFESSOR OF HISTORY Unavailable Unavailable Sherrill, Cathie ASSOCIATE PROFESSOR OF HISTORY Unavailable Unavailable Sherrill, Cathie ASSOCIATE PROFESSOR OF HISTORY Unavailable Unavailable Sherrill, Cathie ASSOCIATE PROFESSOR OF HISTORY Unavailable Unavailable Sherrill, Cathie ASSOCIATE PROFESSOR OF HISTORY Unavailable Unavailable Sherrill, Cathie ASSOCIATE PROFESSOR OF HISTORY Unavailable Unavailable Sherrill, Cathie ASSOCIATE PROFESSOR OF HISTORY Unavailable Unavailable Sherrill, Cathie ASSOCIATE PROFESSOR OF HISTORY Unavailable Unavailable Sherrill, Cathie ASSOCIATE PROFESSOR OF HISTORY Unavailable Unavailable Sherrill, Cathie ASSOCIATE PROFESSOR OF HISTORY Unavailable Unavailable Sherrill, Cathie ASSOCIATE PROFESSOR OF HISTORY Unavailable Unavailable Sherrill, Cathie ASSOCIATE PROFESSOR OF HISTORY Unavailable Unavailable Sherrill, Cathie ASSOCIATE PROFESSOR OF HISTORY Unavailable Unavailable Sherrill, Cathie ASSOCIATE PROFESSOR OF HISTORY Unavailable Unavailable Sherrill, Cathie ASSOCIATE PROFESSOR OF HISTORY Unavailable Unavailable Hemant Chavez PA Unavailable Unavailable Hemant Chavezey PA Unavailable Unavailable Hemant Chavezey PA Unavailable Unavailable Hemant Chavez Pastora PA Unavailable Unavailable Greenbrier, J Pastora PA Unavailable Unavailable Hemant Chavez Pastora PA Unavailable Unavailable Greenbrier, J Pastora PA Unavailable Unavailable Hemant Chavez [...] Unavailable Hemant Chavez Pastora PA Unavailable Unavailable Greenbrier, J Pastora PA Unavailable Unavailable Greenbrier, J Pastora PA Unavailable Unavailable Greenbrier, J Pastora PA Unavailable Unavailable Greenbrier, J Pastora PA Unavailable Unavailable Greenbrier, J Pastora PA Unavailable Unavailable FELECIA, J [...] is protected by Article 27-F of the [facility] Public Health law. If you continue you may have access to information: Regarding HIV / AIDS; Provided by facilities licensed or operated by the [facility] Office of Mental Health; or Provided by the [facility] Office for People With Developmental Disabilities. If such information is present, then the following [facility] mandated warning applies: This information has been [...] law may result in a fine or senior care sentence or both. A general authorization for the release of medical or other information is NOT sufficient authorization for further disc losure. Allergies and Adverse Reactions Type Description Substance Reaction Status Data Source(s ) Allergy to substance Allergy to substance Allergy to substance [facility] ([facility]) Family History Family Member Name Family Member Gender Family Member Status Date o f Status Description Data Source(s) Unknown Female Diagnosis 08/13/2019 12:00:00 AM EST [facility] ([facility]) Unknown Female Diagnosis 08/18/2014 12:00:00 AM EST [facility] ([facility]) Encounters Encounter Providers Location Date Indications Data Source(s ) Attender: Elissa [place] 0 08/25/2020 10:09:00 AM EST - 08/25/2020 10:09:00 AM EST [facility] ([facility]) Gonzalo Grajeda MD: [address] [place] [address], Ph. Attender: Gonzalo Grajeda MD [facility] Medical 08/10/2020 12:00:00 AM EST [facility] ([facility]) Outpatient Attender: Cathie MARTINP Augusto Loya 10:40:00 AM EDT [facility] ([facility] ) Outpatient Attender: Joselyn Loya 08:00:00 AM EST [facility] ([facility] ) Attender: Pastora MAGALLON PPNCJEREMÍAS [facility] 07/29 03:15:00 PM EST - 08/13/2019 03:15:00 PM EST Body mass index (BMI) 31.0-31.9, adultEn counter for oth screening for malignant neoplasm of breastEncntr for business executive exam (general) (routine) w/o abn findingsEncounter for oth general cnsl and advice on contraceptionOther sex counselingEncounter for test, result negativeHuman immunodeficiency virus [HIV] counseling [facility] ([facility]) Body mass index (BMI) 31.0-31.9, adult Encounter for oth screening for malignan t neoplasm of breast Encntr for business executive exam (general) (routine) w/o abn findings Encounter [...] TABLET THREE TIMES A DAY SOLD: 06/29/2020 [facility] 5-325 mg 06/29/2020 12:00:00 AM EST [...] Adderall 08/20/2019 12:00:00 AM EST active [facility] ([facility]) Triamcinolone Acetonide 1 MG/ML Topical Cream Triamcinolone Acetonide 08/20/2019 12:00:00 AM EST completed [facility] ([facility]) No Active Medications 08/20/2019 12:00:00 AM EST completed [facility] ([facility]) Adderal 08/20/2019 12:00:00 AM EST completed [facility] ([facility]) Insurance Providers Payer name Policy type / Coverage type Policy ID Covered democrat ID Covered democrat's relationship to monsalve Policy Monsalve Plan Information SELF PAY ONLY [facility] [id number] [id number] [place] 306/806 [id number] SP [id number] UMR O [id number] S [id number] EXCELLUS BCBS B [id number] S VYS [id number] PMA MANAGEMENT [facility] [place] [id number] SP [id number] [place] PPO 302/307 [id number] HU2 [id number] SELF PAY O [id number] S [id number] BC[place] PPO 302/307 [id number] HU2 [id number] EXCELLUS BCBS B [id number] P VYS [id number] [employer] [id number] SP [id number] SELF PAY UNAVAILABLE UNAVAILA BLE Results ID Date Data Source [id number] 08/10/2020 08:43:00 AM EST [facility] ([facility]) Name Value Range Interpretation Code Description Data Debbi rce(s) Supporting Document(s) sars-cov-2 negative negative normal Sars-cov-2 [facility] ([facility]) ID Date Data Source [id number] 08/10/2020 07:42:00 AM EST [facility] Name Value Range Interpretation Code Description Data Debbi rce(s) Supporting Document(s) SARS coronavirus 2 RdRp gene [Presence] in Respiratory specimen by SHANELLE with probe detection Not detected [facility] This lab was ordered by [facility] and reported by [facility]. ID Date Data Source [id number] 08/09/2020 10:00:00 AM EST [facility] Name Value Range Interpretation Code Description Data Debbi rce(s) Supporting Document(s) SARS coronavirus 2 RNA Not Detected [facility] [place] This lab was ordered by [facility] and reported by [facility]. ID Date Data Source [id number] 08/20/2019 09:00:00 AM EST [facility] ([facility]) Name Value Range Interpretation Code Description Data Debbi rce(s) Supporting Document(s) Triglyceride [Mass/volume] in Serum or Plasma 109 mg/dL 30-150 [facility] ([facility]) Cholesterol [Mass/volume] in Serum or Plasma 188 mg/dL 131-200 [facility] ([facility]) Cholesterol in HDL [Mass/volume] in Serum or Plasma 41 mg/dL 35-60 [facility] ([facility]) Cholesterol in LDL [Mass/volume] in Serum or Plasma by calcu lation 125 CALC 50-159 [facility] ([facility]) ID Date Data Source [id number] 08/20/2019 09:00:00 AM EST [facility] ([facility]) Name Value Range Interpretation Code Description Data Debbi rce(s) Supporting Document(s) Glucose [Mass/volume] in Serum or Plasma 92 mg/dL 74-99 [facility] ([facility]) 100-125 mg/dL PRE-DIABETES/FASTING >126 mg/dL DIABETES/FASTING Urea nitrogen [Mass/volume] in Serum or Plasma 8 mg/dL 7-18 [facility] ([facility]) Creatinine 0.8 mg/dL 0.6-1.3 [facility] Sodium [Moles/volume] in Serum or Plasma 139 meq/L 136-145 [facility] ([facility]) Potassium [Moles/volume] in Serum or Plasma 3.6 meq/L 3.5-5.1 [facility] ([facility]) Chloride [Moles/volume] in Serum or Plasma 104 meq/L 98-107 [facility] ([facility]) Alkaline phosphatase isoenzyme [Units/volume] in Serum or Pl asma 64 mg/dL 46-116 [facility] ([facility]) Calcium [Mass/volume] in Serum or Plasma 8.8 mg/dL 8.5-10.1 [facility] ([facility]) Carbon dioxide, total [Moles/volume] in Serum or Plasma 29 meq/L 21 -32 [facility] ([facility]) Aspartate aminotransferase [Enzymatic activity/volume] in Serum or Plasma 10 U/L 15-37 [facility] ([facility] ) Total Bilirubin 1.1 mg/dL 0.2-1.0 [facility] ([facility]) Alanine aminotransferase [Enzymatic activity/volume] in Seru m or Plasma 17 U/L 12-78 [facility] ([facility]) Albumin [Mass/volume] in Serum or Plasma 4.1 g/dL 3.4-5.0 [facility] Proteinase 3 Ab [Units/volume] in Serum 7.4 g/dL 6.4-8.2 [facility] ([facility]) Glomerular filtration rate/1.73 sq M pre dicted among blacks [Volume Rate/Area] in Serum or Plasma by Creatinine-based formula (MDRD) Laboratory [facility] <content>CHRONIC KIDNEY DISEASE STAGING PER NKF</content>
<content></content>
<content>STAGE I & II GFR >= 60 NORMAL TO MILDLY DECREASED</content>
<content>STAGE III GFR 30-59 MODERATELY DECREASED</content>
<content>STAGE IV GFR 15-29 SEVERELY DECREASED</content>
<content>STAGE V GFR <15 VERY LITTLE GFR LEFT</content>
<content>ESRD GFR <15 ON QUALITATIVE RESEARCHER</content>
<content></content> Glomerular filtration rate/1.73 sq M pre dicted among non-blacks [Volume Rate/Area] in Serum or Plasma by Creatinine-based formula (MDRD) Laboratory test result [facility] ([facility] ) A/G Ratio 1.24 CALC 1.00-1.90 [facility]) ID Date Data Source [id number] 08/20/2019 09:00:00 AM EST [facility] ([facility]) Name Value Range Interpretation Code Description Data Debbi rce(s) Supporting Document(s) Erythrocytes [#/volume] in Blood by Automated count 4.88 x10*6/UL 4.2 0-6.30 [facility] ([facility]) Hemoglobin [Mass/volume] in Blood 14.3 g/dL 12.0-18.0 [facility] ([facility]) Leukocytes [#/volume] in Blood by Automated count 6.9 x10*3/UL 4.1-10 .9 [facility] ([facility]) Hematocrit [Volume Fraction] of Blood by Automated count 41.3 % 3 7.0-51.0 [facility] ([facility]) MCV 84.6 fL 80.0-97.0 [facility]) Erythrocyte distribution width [Ratio] by Automated count 12.4 % 11.6-13.7 [facility] ([facility]) MCH 29.3 pg 26.0-32.0 [facility]) MCHC 34.6 g/dL 31.0-38.0 [facility] ([facility]) Platelets [#/volume] in Blood by Automated count 228 x10*3/UL 140-440 [facility] ([facility]) MPV 8.9 FL 7.8-11.0 [facility] ([facility]) Lymph % 25.9 % 10.0-58.5 [facility] ([facility]) Lymph # 1.8 x10*3/UL 0.6-4.1 [facility] ([facility]) Mid % 7.4 % 1.7-9.3 [facility] ([facility]) Mid # 0.5 x10*3/UL 0.1-0.6 [facility] ([facility]) Neut % 66.7 % 37.0-92.0 [facility] ([facility]) Neut # 4.6 x10*3/UL 2.0-7.8 [facility] ([facility]) Procedure Social History Code Duration Value Status Description Data Source(s ) Smoking 08/25/2020 12:00:00 AM EST Heavy tobacco smoker comple juan Heavy tobacco smoker [facility] ([facility]) Vital Signs ID Date Data Source UNK Name Value Range Interpretation Code Description Data Source(s) Body mass index (BMI) [Ratio] 31.0 kg/m2 31.0 k g/m2 [facility] ([facility]) Oxygen saturation in Arterial blood by Pulse oximetry 99 % 99 % [facility] ([facility]) RM Air Body weight 192.00 [lb_av] 192.00 [lb_av] [facility] ([facility]) Body height 66 [in_i] 66 [in_i] [place] ([facility]) 5'6" Diastolic blood pressure 68 mm[Hg] 68 mm[Hg] [facility] Systolic blood pressure 138 mm[Hg] 138 mm[Hg] [facility] ([facility]) Body mass index (BMI) [Ratio] 31.3 kg/m2 31.3 k g/m2 [facility] ([facility]) Oxygen saturation in Arterial blood by Pulse oximetry 99 % 99 % [facility] ([facility]) Body weight 194.00 [lb_av] 194.00 [lb_av] [facility]ro[facility] ([facility]) Body height 66 [in_i] 66 [in_i] [facility] ([facility]) 5'6" Heart rate 104 /min 104 /min [facility] ([facility]) Diastolic blood pressure 88 mm[Hg] 88 mm[Hg] [place] ([facility]) Systolic blood pressure 140 mm[Hg] 140 mm[Hg] [facility] ([facility])
[2020-08-31 18:58] LABS: BASO % 0.4 % (0.0-1.0); EOS # 0.1 10^3/uL (0.0-0.5); EOS % 0.6 % (0.0-3.0); HEMATOCRIT 39.9 % (36.0-47.0); HEMOGLOBIN 13.4 g/dl (12.0-15.5); LYMPH # 2.1 10^3/uL (1.5-5.0); LYMPH % 26.8 % (24.0-44.0); MEAN CORPUSCULAR HEMOGLOBIN 28.7 pg (27.0-33.0); MEAN CORPUSCULAR HGB CONC 33.6 g/dl (32.0-36.5); MEAN CORPUSCULAR VOLUME 85.4 fl (80.0-96.0); MONO # 0.5 10^3/uL (0.0-0.8); MONO % 6.2 % (0.0-5.0); NEUTROPHILS # 5.1 10^3/uL (1.5-8.5); NEUTROPHILS % 65.7 % (36.0-66.0); PLATELET COUNT, AUTOMATED 236 10^3/uL (150-450); RED BLOOD COUNT 4.67 10^6/uL (4.00-5.40); WHITE BLOOD COUNT 7.8 10^3/uL (4.0-10.0)
[2020-08-31 19:01] LABS: APPEARANCE, URINE CLEAR (CLEAR); BACTERIA, URINE AUTO NEGATIVE (NEGATIVE); BILIRUBIN, URINE AUTO NEGATIVE (NEGATIVE); BLOOD, URINE BLOOD 2+ (NEGATIVE); COLOR, URINE COLORLESS (YELLOW); GLUCOSE, URINE (UA) AUTO NEGATIVE (NEGATIVE); KETONE, URINE AUTO NEGATIVE (NEGATIVE); LEUKOCYTE ESTERASE, URINE AUTO NEGATIVE (NEGATIVE); NITRITE, URINE AUTO NEGATIVE (NEGATIVE); PROTEIN, URINE AUTO NEGATIVE (NEGATIVE); RBC, URINE AUTO 0 /HPF (0-3); SPECIFIC GRAVITY URINE AUTO 1.001 (1.002-1.035); SQUAMOUS EPITHELIAL CELL UR AU 0 /HPF (0-6); UROBILINOGEN, URINE AUTO 0.2 mg/dL (0.0-2.0); WBC, URINE AUTO 0 /HPF (0-3)
[2020-08-31 19:09] LABS: HCG, SERUM QUALITATIVE NEGATIVE (NEGATIVE)
[2020-08-31 19:14] LABS: AMPHETAMINES LEVEL URINE POSITIVE (NEGATIVE); BARBITURATES URINE NEGATIVE (NEGATIVE); BENZODIAZEPINES URINE NEGATIVE (NEGATIVE); CANNABINOIDS URINE NEGATIVE (NEGATIVE); COCAINE METABOLITE URINE NEGATIVE (NEGATIVE); METHADONE URINE NEGATIVE (NEGATIVE); OPIATES URINE NEGATIVE (NEGATIVE); PHENCYCLIDINE URINE NEGATIVE (NEGATIVE)
[2020-08-31 19:21] LABS: ALBUMIN 3.8 GM/DL (3.2-5.2); ALT/SGPT 18 U/L (12-78); BILIRUBIN,DIRECT 0.2 MG/DL (0.0-0.2); BILIRUBIN,TOTAL 0.8 MG/DL (0.2-1.0); BLOOD UREA NITROGEN 8 MG/DL (7-18); CALCIUM LEVEL 8.9 MG/DL (8.5-10.1); CARBON DIOXIDE LEVEL 29 MEQ/L (21-32); CHLORIDE LEVEL 108 MEQ/L (98-107); CREATININE FOR GFR 0.66 MG/DL (0.55-1.30); FREE T4 0.97 NG/DL (0.76-1.46); GLOMERULAR FILTRATION RATE > 60.0 (>60); GLUCOSE, FASTING 83 MG/DL (70-100); POTASSIUM SERUM 3.5 MEQ/L (3.5-5.1); SODIUM LEVEL 140 MEQ/L (136-145); TOTAL PROTEIN 7.1 GM/DL (6.4-8.2)
[2020-08-31 19:31] LABS: RSV AMPLIFICATION NEGATIVE (NEGATIVE)
[2020-08-31 19:33] LABS: ERYTHROCYTE SEDIMENTATION RATE 13 mm/hr (0-20)
[2020-08-31] MEDS ORDERED: [UNRECOGNIZED DRUG - REMARK] (20:04)
[2020-08-31] MEDS ORDERED: ISOVUE-370 76% 100ML VIAL As Ordered ONE (20:37)
--- NOTE | 2020-08-31 21:12 | REPVR ---
PROCEDURE INFORMATION: Exam: CT Angiography Chest With Contrast Exam date and time: 08/31/2020 8:39 PM Age: 35 years old Clinical indication: Other: HTN; Additional info: Malaise, HTN, R/O pe TECHNIQUE: Imaging protocol: Computed tomographic angiography of the chest with contrast. 3D rendering (Not supervised by radiologist): MIP and/or 3D reconstructed images were created by the technologist. Radiation optimization: All CT scans at this facility use at least one of these dose optimization techniques: automated exposure control; mA and/or kV adjustment per patient size (includes targeted exams where dose is matched to clinical indication); or iterative reconstruction. Contrast material: ISOVUE 370; Contrast volume: 100 ml; Contrast route: INTRAVENOUS (IV); COMPARISON: CR PORTABLE CHEST X-RAY 08/31/2020 7:46 PM FINDINGS: Pulmonary arteries: There are no pulmonary emboli. Aorta: There is no aortic dissection or aneurysm. Lungs: Bibasilar atelectasis. Lungs otherwise clear Pleural spaces: Unremarkable. No pneumothorax. No pleural effusion. Heart: Unremarkable. No cardiomegaly. No pericardial effusion. Lymph nodes: Unremarkable. No enlarged lymph nodes. Bones/joints: Unremarkable. No acute fracture. Soft tissues: Unremarkable. IMPRESSION: 1. There is no aortic dissection or aneurysm. 2. There are no pulmonary emboli. 3. No acute pulmonary parenchymal abnormalities. Electronically signed by: Harsh Cavanaugh On 08/31/2020 21:11:44 PM
--- NOTE | 2020-08-31 21:16 | REPVR ---
PROCEDURE INFORMATION: Exam: CT Abdomen And Pelvis With Contrast Exam date and time: 08/31/2020 8:39 PM Age: 35 years old Clinical indication: Other: HTN; Additional info: Elevated HTN, attention adrenals TECHNIQUE: Imaging protocol: Computed tomography of the abdomen and pelvis with contrast. Radiation optimization: All CT scans at this facility use at least one of these dose optimization techniques: automated exposure control; mA and/or kV adjustment per patient size (includes targeted exams where dose is matched to clinical indication); or iterative reconstruction. Contrast material: ISOVUE 370; Contrast volume: 100 ml; Contrast route: INTRAVENOUS (IV); COMPARISON: CT ABD PELVIS W/O CONTRAST 08/25/2018 5:34 PM FINDINGS: Liver: Normal. No mass. Gallbladder and bile ducts: There are gallstones present. No evidence of cholecystitis demonstrated. Pancreas: Normal. No ductal dilation. Spleen: Normal. No splenomegaly. Adrenal glands: Normal. No mass. Kidneys and ureters: Normal. No hydronephrosis. Stomach and bowel: Unremarkable. No obstruction. No mucosal thickening. Appendix: No evidence of appendicitis. Intraperitoneal space: Unremarkable. No free air. No significant fluid collection. Vasculature: Unremarkable. No abdominal aortic aneurysm. Lymph nodes: Unremarkable. No enlarged lymph nodes. Urinary bladder: Unremarkable as visualized. Reproductive: 2.2 cm left adnexal cyst likely functional. Bones/joints: Unremarkable. No acute fracture. Soft tissues: There is a small umbilical hernia. There is no evidence of incarceration. IMPRESSION: 1. There are gallstones present. No evidence of cholecystitis demonstrated. 2. Otherwise unremarkable. Electronically signed by: Harsh Cavanaugh On 08/31/2020 21:16:45 PM
[2020-08-31 22:21] VITALS: BP 138/91
--- NOTE | 2020-09-01 03:52 | REP ---
INDICATION: CHEST PAIN COMPARISON: None. TECHNIQUE: Portable AP view of the chest FINDINGS: The mediastinum and cardiac silhouette are within normal limits for portable technique. The lung kirby are clear without acute consolidation, effusion, or pneumothorax. Skeletal structures are intact. IMPRESSION: No acute cardiopulmonary process appreciated. <Electronically signed by Emanuel Kenny > 09/01/20 [id number]
--- NOTE | 2020-09-01 07:41 | ECGEPIP ---
[facility] - ED Test Date: 2020-08-31 Pat Name: EKTA BIRD Department: Room: - Gender: Female Outer Diameter Technician: nflucretiagg : 1985 Requested By: ROB Estevez Order Number: [id number] Reading MD: Peggy Leon Measurements Intervals Shaniko Rate: 85 P: 37 WA: 152 QRS: 24 QRSD: 84 T: 34 QT: 375 QTc: 448 Interpretive Statements SINUS RHYTHM No prior Electronically Signed on 09-01-2020 7:41:26 EST by Peggy Leon
== END 2020-08-31 22:29 | disposition home or self-care (01) ==
LOC: M ED 16:59
DX: R03.0 Elevated blood-pressure reading, without diagnosis of hypertension (principal); F90.9 Attention-deficit hyperactivity disorder, unspecified type; F17.200 Nicotine dependence, unspecified, uncomplicated; Z79.899 Other long term (current) drug therapy; Z91.040 Latex allergy status
CPT/HCPCS: 71045; 71275; 74177; 80048; 80076; 80307; 81001; 83835; 84439; 84443; 84703; 85025; 85652; 86140; 87631; 93005; 93041; 94760; 99285; Q9967

== ENCOUNTER → 2021-07-07 | Outpatient (REF) ==
[~2021-07-07] MED LIST changes: +[UNRECOGNIZED DRUG - REMARK]
== END ==
LOC: M EMP 10:37
PROVIDERS: ATTEND Family Medicine
DX: Z20.828 Contact with and (suspected) exposure to other viral communicable diseases (principal)

== ENCOUNTER → 2021-07-12 | Outpatient (REF) | LOC: M EMP 11:33 | PROVIDERS: ATTEND Family Medicine | DX: Z20.828 Contact with and (suspected) exposure to other viral communicable diseases (principal) ==

== ENCOUNTER → 2022-04-04 | Outpatient (REF) | LOC: M LABSMTC 10:51 | PROVIDERS: ATTEND Family Medicine | DX: Z20.822 Contact with and (suspected) exposure to COVID-19 (principal) ==

== ENCOUNTER → 2023-06-04 | Outpatient (REF) | LOC: M EMP 09:02 | PROVIDERS: ATTEND Family Medicine | DX: Z11.52 Encounter for screening for COVID-19 (principal) ==

== ENCOUNTER → 2024-04-20 | Outpatient (REF) | LOC: M EMP 09:27 | PROVIDERS: ATTEND Family Medicine | DX: Z11.52 Encounter for screening for COVID-19 (principal) ==

== ENCOUNTER → 2024-08-10 | Outpatient (REF) | LOC: M EMP 08:18 | PROVIDERS: ATTEND Family Medicine | DX: Z01.89 Encounter for other specified special examinations (principal) ==

== ENCOUNTER → 2024-08-10 | Outpatient (REF) | LOC: M EMP 08:21 | PROVIDERS: ATTEND Family Medicine | DX: Z01.89 Encounter for other specified special examinations (principal) ==